=== PATIENT | female | born 1945 | race Two or more races ===

== ENCOUNTER 2023-10-10 20:35 | Emergency (ER) | payer OTHER ==
[~2023-10-10] VITALS: Ht 152.4 cm; Wt 95.3 kg
[2023-10-10] MEDS ORDERED: MECLIZINE HCL12.5 MG PO (20:48)
[2023-10-10] MEDS ORDERED: IRBESARTAN300 MG PO (20:48)
[2023-10-10] MEDS ORDERED: AMLODIPINE-OLM1 EAC3 PO (20:48)
[2023-10-10] MEDS ORDERED: PENTOXIFYLLINE400 MG PO (20:49)
[2023-10-10 21:22] LABS: HEMATOCRIT 41.6 % (36.0-45.00); HEMOGLOBIN 13.9 g/dL (12.0-15.00); MEAN CELL VOLUME 87.6 fL (80.00-100.00); MEAN CORPUSCULAR HEMOGLOBIN 29.3 pg (27.00-32.0); MEAN CORPUSCULAR HGB CONC 33.4 g/dl (32.0-36.0); PLATELET COUNT 213 K/uL (150-450); RED BLOOD COUNT 4.75 M/uL (4.00-6.00); RED CELL DISTRIBUTION WIDTH 14.8 % (11.5-14.5)
[2023-10-10 22:01] LABS: URINE APPEARANCE Cloudy; URINE BILIRRUBIN Small (NEGATIVE); URINE BLOOD Moderate; URINE COLOR Dark Yellow; URINE GLUCOSE Negative (NEGATIVE); URINE LEUKOCYTE Small; URINE NITRATE Negative
[2023-10-10 22:03] LABS: CREATININE SERUM 1.2 mg/dL (0.55-1.02); GFR 43.22; POTASSIUM 3.85 mEq/L (3.5-5.1)
[2023-10-10 22:04] LABS: URINE BACTERIA 148.6 uL (0.0-1933); URINE EPITHELIAL CELLS 47.7 uL (0.0-38.8); URINE RBC 56.8 uL (0.0-20.8); URINE WBC 45.1 uL (0.0-23.2)
[2023-10-10 22:19] LABS: URINE CRYSTALS FEW /HPF; URINE PROTEIN 100 (NEGATIVE)
[2023-10-10 22:20] LABS: URINE MUCUS MODERATE; URINE YEAST FEW /hpf
== END 2023-10-10 22:54 | disposition home or self-care (01) ==
LOC: ER 20:35
PROVIDERS: General Practice
DX: U07.1 COVID-19 (principal); R53.81 Other malaise

== ENCOUNTER 2024-10-03 08:30 | Outpatient (CLI) | payer OTHER ==
[~2024-10-03 08:30] MED LIST: AMLODIPINE-OLM1 EAC3 PO; IRBESARTAN300 MG PO; MECLIZINE HCL12.5 MG PO; PENTOXIFYLLINE400 MG PO
== END 2024-10-03 08:35 | disposition home or self-care (01) ==
LOC: SONOGRAMA 08:30
PROVIDERS: ATTEND Internal Medicine Geriatric Medicine
DX: R10.9 Unspecified abdominal pain (principal); R74.8 Abnormal levels of other serum enzymes